=== PATIENT | male | born 1975 | race African-American/Black ===

== ENCOUNTER 2023-02-21 21:10 | Emergency (ER) | payer SELFPAY ==
[2023-02-21] MEDS ORDERED: TDAP (DIPHTH,PERTUSS(ACELL),TET VAC) 0.5 ML VIAL IMVAC ONE (21:44)
[2023-02-21] MEDS ORDERED: LIDOCAINE 1% 20 ML MDV ONE (21:44)
--- NOTE | 2023-02-21 22:25 | EDPHYS ---
Physician Documentation [facility] Name: Tariq Green Age: 47 yrs Sex: Male : 1975 Arrival Date: 02/21/2023 Time: 21:10 Bed 16 Private MD: ED Physician Severiano Barth HPI: 02/21 21:15 This 47 yrs old Black Male presents to ER via Unassigned with complaints of LACERATION sp4 TO FINGER. 22:17 Patient presents with acute left thumb laceration on the palmar side over the left sp4 thumb about 3 cm long, associated with moderate bleeding reported to be moderate to heavy bleeding in triage. Patient states he was using a table saw that nicked his left thumb. He reports thumb is still sensitive and he can move it. On arrival bleeding is controlled with pressure dressing. Patient is not sure when the last tetanus shot was. Denies any history of significant medical problem. Historical: - Allergies: 21:17 No Known Allergies; cm10 - Home Meds: 21:17 None [Active]; cm10 - PMHx: 21:17 None; cm10 - PSHx: 21:17 None; cm10 - Immunization history:: Adult Immunizations unknown, Last tetanus immunization: unknown. - Social history:: Smoking status: Patient reports the use of cigarette tobacco products, cigars. - Family history:: not pertinent. ROS: 22:17 Constitutional: Negative for fever, chills, and weight loss, MS/Extremity: Positive sp4 Left thumb laceration palmar side of the left thumb with moderate bleeding 22:17 All other systems are negative, Exam: 22:17 Constitutional: This is a well developed, well nourished patient who is awake, alert, sp4 and in no acute distress. Head/Face: Normocephalic, atraumatic. Eyes: Pupils equal round and reactive to light, extra-ocular motions intact. Lids and lashes normal. Conjunctiva and sclera are not injected. Cornea within normal limits. Periorbital areas with no swelling, redness, or edema. ENT: Nares patent. No nasal discharge, no septal abnormalities noted. Tympanic membranes are normal and external auditory canals are clear. Oropharynx with no redness, swelling, or masses, exudates, or evidence of obstruction, uvula midline. Mucous membranes moist. Neck: Trachea midline, no thyromegaly or masses palpated, and no cervical lymphadenopathy. Supple, full range of motion without nuchal rigidity, or vertebral point tenderness. Chest/axilla: Normal chest wall appearance and motion. Nontender with no deformity. No lesions are appreciated. Cardiovascular: Regular rate and rhythm with a normal S1 and S2. No gallops, murmurs, or rubs. Normal PMI, no JVD. No pulse deficits. Respiratory: Lungs have equal breath sounds bilaterally, clear to auscultation and percussion. No rales, rhonchi or wheezes noted. No increased work of breathing, no retractions or nasal flaring. Abdomen/GI: Soft, non-tender, with normal bowel sounds. No distension or tympany. No guarding or rebound. No evidence of tenderness throughout. Back: No spinal tenderness. No costovertebral tenderness. Skin: Warm, dry with normal turgor. Normal color with no rashes, no lesions, and no evidence of cellulitis. Positive for left thumb laceration MS/ Extremity: Pulses equal, no cyanosis. Neurovascular intact. Full, normal range of motion. Positive for left thumb laceration spanning proximal phalanx of the left thumb, laceration has longitudinal on the palmar side of the left thumb. On exam there is bleeding that is controlled with pressure direct. Appear to still have small arterial laceration over the left thumb. No sign of digital artery laceration. Neuro: Awake and alert, GCS 15, oriented to person, place, time, and situation. Cranial nerves II-XII grossly intact. Motor strength 5/5 in all extremities. Sensory grossly intact. Psych: Awake, alert, with orientation to person, place and time. Behavior, mood, and affect are within normal limits Vital Signs: 21:15 BP 138 / 95; Pulse 84; Resp 18 S; Temp 98.1(TE); Pulse Ox 98% on R/A; Weight 92.99 kg cm10 (R); Height 5 ft. 9 in. (R); Pain 6/10; 21:30 BP 136 / 96; Pulse 91; Resp 18 S; Pulse Ox 99% on R/A; ha1 22:39 BP 143 / 98; Pulse 76; Resp 18 S; Pulse Ox 98% on R/A; ha1 21:15 Body Mass Index 30.27 (92.99 kg, 175.26 cm) cm10 21:15 Pain Scale: Adult cm10 Laceration: 22:17 Wound Repair of 3cm ( 1.2in ) subcutaneous laceration to palmar aspect of proximal sp4 phalanx of left thumb, 3 cm laceration proximal phalanx left thumb palmar side of the left thumb longitudinal orientation, small arterial bleeding present also there is flap . Moderate bleeding, small flap component to laceration, tendon and ligament function intact. Distal neuro/vascular/tendon intact. Anesthesia: Digital block administered with 10 mls of 1% lidocaine. Wound prep: Moderate cleansing by me, Wound irrigation by me, Wound explored moderately, Copious irrigation. Skin closed with 10 4-0 Silk using interrupted sutures and sterile technique. Dressed with 4x4's, Kerlix, non-adherent dressing. Patient tolerated well. MDM: 21:17 Patient medically screened. sp4 22:17 Differential Diagnosis Laceration, puncture wound, tendon injury, nerve injury, sp4 arterial laceration. Data reviewed: vital signs, nurses notes, old medical records. ED course: Laceration was repaired with silk sutures, patient advised to keep sutures for the next 20 days. If silk sutures would not fill out by themselves and sutures should be removed after 20 days here in ER or cell support operator office. Advised daily dressing changes. Will prescribe as needed ibuprofen and tramadol short course for the next 3 days. . 02/21 21:26 Order name: Dressing - Wound; Complete Time: 21:27 sp4 02/21 21:26 Order name: Gloves, Sterile; Complete Time: 21:27 sp4 02/21 21:26 Order name: Setup Suture Tray; Complete Time: 21:27 sp4 Administered Medications: 21:37 Drug: Tetanus-Diphtheria Toxoid IM Adult 0.5 ml IM once; Provide Vaccine Information ha1 Statement (VIS). {Welfare Eligibility Interviewer: Pinoccio; Exp: SatSep 21 2024; Lot #: [id number]; Series: 1 of 1; Patient Consent: Obtained; Date/Time: ; Source Name: Tariq Green; Source Relationship: Self; Address Information: [address] [place] [address]; ; Education: Provided; VIS Presented Date: ; VIS Publication: Tetanus/Diphtheria (Td) VIS 06/23/2013 (historic)} Route: IM; Site: right deltoid; 22:12 Follow up: Response: No adverse reaction ha1 22:12 Drug: Lidocaine Infiltration (1 %) 20 ml 20 ml Infiltration once; to bedside {Note: ha1 administered by Dr. Severiano Soni} Volume: 20 ml; Route: Infiltration; 22:43 Follow up: Response: No adverse reaction ha1 22:20 Drug: Ibuprofen PO 800 mg PO once Route: PO; ha1 22:43 Follow up: Response: No adverse reaction; Pain is decreased ha1 22:20 Drug: traMADol PO 100 mg PO once Route: PO; ha1 22:43 Follow up: Response: No adverse reaction; Pain is decreased ha1 Disposition Summary: 02/21/23 22:24 Discharge Ordered Problem: new sp4 Symptoms: have improved sp4 Condition: Stable sp4 Diagnosis - Laceration without foreign body of left thumb without damage to nail, initial sp4 encounter Followup: sp4 - With: Private Physician - When: after 20 days , in case silk sutures still present - Reason: Recheck today's complaints Discharge Instructions: - Discharge Summary Sheet sp4 - Laceration Care, Adult, [id number] sp4 Forms: - Patient Portal Instructions sp4 Prescriptions: - Ibuprofen 800 mg Oral Tablet - take 1 tablet ORAL route every 8 hours As needed take with food; 30 tablet; sp4 Refills: 0, Product Selection Permitted - Tramadol 50 mg Oral Tablet - take 1 tablet ORAL route every 8 hours as needed; 12 tablet; Refills: 0, sp4 Product Selection Permitted Signatures: Lupis Becerra RN RN ha1 Severiano Barth MD MD sp4 Magaly Mari RN RN cm10
--- NOTE | 2023-02-21 22:25 | ER ---
Nurse's Notes [facility] Name: Tariq Green Age: 47 yrs Sex: Male : 1975 Arrival Date: 02/21/2023 Time: 21:10 Bed 16 Private MD: Diagnosis: Laceration without foreign body of left thumb without damage to nail, initial encounter Presentation: 02/21 21:15 Chief complaint: Patient states: laceration to left thumb. pt states that he cut cm10 himself with an electric saw. Coronavirus screen: Vaccine status: Patient reports receiving the 2nd dose of the covid vaccine. Ebola Screen: Patient denies travel to an Ebola-affected area in the 21 days before illness onset. No symptoms or risks identified at this time. Initial Sepsis Screen: Does the patient meet any 2 criteria? No. Patient's initial sepsis screen is negative. Does the patient have a suspected source of infection? No. Patient's initial sepsis screen is negative. Risk Assessment: Do you want to hurt yourself or someone else? Patient reports no desire to harm self or others. Onset of symptoms was February 21, 2023. 21:15 Method Of Arrival: Ambulatory cm10 21:15 Acuity: [place] 4 cm10 Historical: - Allergies: 21:17 No Known Allergies; cm10 - Home Meds: 21:17 None [Active]; cm10 - PMHx: 21:17 None; cm10 - PSHx: 21:17 None; cm10 Historical Immunization: - Administered Vaccines 22:20 Ibuprofen PO 800 mg ha1 22:20 traMADol PO 100 mg ha1 22:12 Lidocaine Infiltration (1 %) 20 ml ha1 21:37 Tetanus-Diphtheria Toxoid IM Adult 0.5 ml ha1 Sawdust Machine Operator: Flywheel; Exp: SatSep 21 2024; Lot #: [id number]; Series: 1 of 1; Patient Consent: Obtained; Date/Time: ; Source Name: Tariq Green; Source Relationship: Self; Address Information: [address] [place] [address]; ; Education: Provided; VIS Presented Date: ; VIS Publication: Tetanus/Diphtheria (Td) VIS 06/23/2013 (historic) - Immunization history:: Adult Immunizations unknown, Last tetanus immunization: unknown. - Social history:: Smoking status: Patient reports the use of cigarette tobacco products, cigars. - Family history:: not pertinent. Screenin:18 [facility] ED Fall Risk Assessment (Adult) History of falling in the last 3 months, ha1 including since admission No falls in past 3 months (0 pts) Confusion or Disorientation No (0 pts) Intoxicated or Sedated No (0 pts) Impaired Gait No (0 pts) Mobility Assist Device Used No (0 pt) Score/Fall Risk Level 0 - 2 = Low Risk Oriented to surroundings, Maintained a safe environment, Educated pt \T\ family on fall prevention, incl call for assistance when getting out of bed. Abuse screen: Denies threats or abuse. Denies injuries from another. Nutritional screening: No deficits noted. Tuberculosis screening: No symptoms or risk factors identified. Assessment: 21:18 General: Appears uncomfortable, Behavior is calm, cooperative. Pain: Complains of pain ha1 in left hand Pain does not radiate. Pain currently is 8 out of 10 on a pain scale. Quality of pain is described as throbbing. Neuro: Level of Consciousness is awake, alert, obeys commands, Oriented to person, place, time, situation. Cardiovascular: Capillary refill < 3 seconds Patient's skin is warm and dry. Respiratory: Airway is patent Respiratory effort is even, unlabored, Respiratory pattern is regular, symmetrical. GI: No signs and/or symptoms were reported involving the gastrointestinal system. Derm: Skin is moist, Skin is normal. Musculoskeletal: Circulation, motion, and sensation intact. Range of motion: intact in all extremities. Injury Description: Laceration sustained to dorsal aspect of proximal phalanx of left thumb is clean, 2.6 to 7.5 cm long. 22:15 Reassessment: Patient and/or family updated on plan of care and expected duration. Pain ha1 level reassessed. Patient is alert, oriented x 3, equal unlabored respirations, skin warm/dry/pink. Vital Signs: 21:15 BP 138 / 95; Pulse 84; Resp 18 S; Temp 98.1(TE); Pulse Ox 98% on R/A; Weight 92.99 kg cm10 (R); Height 5 ft. 9 in. (R); Pain 6/10; 21:30 BP 136 / 96; Pulse 91; Resp 18 S; Pulse Ox 99% on R/A; ha1 22:39 BP 143 / 98; Pulse 76; Resp 18 S; Pulse Ox 98% on R/A; ha1 21:15 Body Mass Index 30.27 (92.99 kg, 175.26 cm) cm10 21:15 Pain Scale: Adult cm10 ED Course: 21:12 Patient arrived in ED. ag3 21:15 Severiano Barth MD is Attending Physician. sp4 21:17 Triage completed. cm10 21:18 Arm band placed on Patient placed in an exam room, on a stretcher. cm10 21:18 Patient has correct armband on for positive identification. Bed in low position. Call ha1 light in reach. Side rails up X 1. Adult w/ patient. 21:19 Lupis Becerra RN is Primary Nurse. ha1 22:41 No provider procedures requiring assistance completed. Patient did not have IV access ha1 during this emergency room visit. 22:42 Provided Education on: follow up for suture removal and wound care. ha1 Administered Medications: 21:37 Drug: Tetanus-Diphtheria Toxoid IM Adult 0.5 ml IM once; Provide Vaccine Information ha1 Statement (VIS). {Sawdust Machine Operator: Flywheel; Exp: SatSep 21 2024; Lot #: [id number]; Series: 1 of 1; Patient Consent: Obtained; Date/Time: ; Source Name: Tariq Green; Source Relationship: Self; Address Information: [address] [place] [address]; ; Education: Provided; VIS Presented Date: ; VIS Publication: Tetanus/Diphtheria (Td) VIS 06/23/2013 (historic)} Route: IM; Site: right deltoid; 22:12 Follow up: Response: No adverse reaction ha1 22:12 Drug: Lidocaine Infiltration (1 %) 20 ml 20 ml Infiltration once; to bedside {Note: ha1 administered by Dr. Severiano Soni} Volume: 20 ml; Route: Infiltration; 22:43 Follow up: Response: No adverse reaction ha1 22:20 Drug: Ibuprofen PO 800 mg PO once Route: PO; ha1 22:43 Follow up: Response: No adverse reaction; Pain is decreased ha1 22:20 Drug: traMADol PO 100 mg PO once Route: PO; ha1 :43 Follow up: Response: No adverse reaction; Pain is decreased ha1 Medication: 22:42 Vaccine Information Statement (VIS) provided today. Questions and/or concerns ha1 addressed. VIS edition date: February 21, 2023. Outcome: 22:24 Discharge ordered by . adriana :41 Discharged to home ambulatory, with family, ha1 :41 Condition: stable 22:41 Discharge instructions given to patient, family, Instructed on discharge instructions, follow up and referral plans. medication usage, Demonstrated understanding of instructions, follow-up care, medications, Prescriptions given X 2, :43 Patient left the ED. ha1 Signatures: Dorene Shields ag3 Lupis Becerra, AP RN ha1 Severiano Barth MD MD sp4 Magaly Mari RN RN cm10 Corrections: (The following items were deleted from the chart) 21:18 Injury Description: Laceration sustained to dorsal aspect of proximal phalanx of ha1 left thumb ha1
[2023-02-21] MEDS ORDERED: IBUPROFEN 400 MG TAB ONE (22:36)
[2023-02-21] MEDS ORDERED: TRAMADOL HCL 50 MG TAB ONE (22:36)
[2023-02-21 22:48] VITALS: TEMP 98.1
[2023-02-21 22:52] VITALS: BP 143/98; O2SAT 98
== END 2023-02-21 22:43 | disposition home or self-care (01) ==
LOC: ER 21:10
PROC: 0HQGXZZ Repair Left Hand Skin, External Approach (ICD-10-PCS; principal; 2023-02-21)
DX: S61.012A Laceration without foreign body of left thumb without damage to nail, initial encounter (principal); Z23 Encounter for immunization; Z72.0 Tobacco use
CPT/HCPCS: 90471; 99284; J2001